=== PATIENT | female | born 1990 | race Caucasian/White ===

== ENCOUNTER 2017-01-09 11:14 | Emergency (ER) | payer MEDICAID ==
[~2017-01-09] VITALS: Ht 162.6 cm; Wt 53.5 kg
[~2017-01-09 11:14] MED LIST: CLON1TAB PO; ONDA4TAB10 PO
[2017-01-09] MEDS ORDERED: DIPHENHYDRAMINE 50 MG/ML, 1ML ONE (11:56)
[2017-01-09] MEDS ORDERED: METOCLOPRAMIDE 5 MG/ML, 2ML ONE (11:56)
[2017-01-09] MEDS ORDERED: SODIUM CHLORIDE FLUSH 10ML SYR IVF ONE (12:00)
[2017-01-09] MEDS ORDERED: SODIUM CHLORIDE 0.9% 1,000ML IVBOLUS ONE (12:00)
[2017-01-09] MEDS ORDERED: DIPHENHYDRAMINE 50 MG/ML, 1ML IVPush ONE (12:00)
[2017-01-09] MEDS ORDERED: METOCLOPRAMIDE 5 MG/ML, 2ML IVPush ONE (12:00)
[2017-01-09 12:03] LABS: HEMATOCRIT 43.3 % (34.6-47.8); HEMOGLOBIN 14.5 g/dL (11.7-16.4); WHITE BLOOD COUNT 12.3 x10^3/uL (3.4-10)
[2017-01-09 12:14] LABS: BLOOD UREA NITROGEN 12 mg/dL (7-18)
[2017-01-09 13:12] VITALS: BP_DIAS 60
[2017-01-09] MEDS ORDERED: BUPIVACAINE 0.25% ONE (13:18)
[2017-01-09 14:24] VITALS: BP_SYST 55
== END 2017-01-09 14:28 | disposition home or self-care (01) ==
LOC: ED 11:30
DX: G43.019 Migraine without aura, intractable, without status migrainosus (principal)
CPT/HCPCS: 36415; 70450; 80048; 82040; 85025; 96361; 96374; 96375; 99285; J1200; J2765; J7030

== ENCOUNTER 2017-04-29 21:25 | Emergency (ER) | payer MEDICAID ==
[~2017-04-29] VITALS: Ht 162.6 cm; Wt 54.2 kg
[2017-04-29 21:31] VITALS: BP 116/79
[2017-04-29] MEDS ORDERED: KETOROLAC 30 MG/1 ML ONE (22:10)
[2017-04-29] MEDS ORDERED: KETOROLAC 30 MG/1 ML IM ONE (22:30)
[2017-04-29] MEDS ORDERED: ALBUTEROL/IPRATROPIUM 2.5MG/0.5MG, 3 ML NPPB ONE (22:30)
[2017-04-29] MEDS ORDERED: ALBUTEROL/IPRATROPIUM 2.5MG/0.5MG, 3 ML ONE (22:39)
[2017-04-29 22:45] LABS: RAPID INFLUENZA A POSITIVE (Negative); RAPID INFLUENZA B Negative (Negative)
== END 2017-04-29 23:16 | disposition home or self-care (01) ==
LOC: ED 23:09
DX: J11.1 Influenza due to unidentified influenza virus with other respiratory manifestations (principal); G43.909 Migraine, unspecified, not intractable, without status migrainosus; J45.909 Unspecified asthma, uncomplicated
CPT/HCPCS: 71020; 87400; 93005; 94640; 96372; 99285; J1885; J7512; J7620

== ENCOUNTER 2017-08-07 09:29 | Emergency (ER) | payer MEDICAID ==
[~2017-08-07] VITALS: Ht 162.6 cm; Wt 53.8 kg
[2017-08-07 11:36] VITALS: BP 100/61
== END 2017-08-07 11:38 | disposition home or self-care (01) ==
LOC: ED 10:29
DX: J01.90 Acute sinusitis, unspecified (principal); R53.83 Other fatigue; G43.909 Migraine, unspecified, not intractable, without status migrainosus; Z88.0 Allergy status to penicillin
CPT/HCPCS: 93005; 99283

== ENCOUNTER 2017-08-30 12:11 | Emergency (ER) | payer MEDICAID ==
[~2017-08-30] VITALS: Ht 162.6 cm; Wt 55.0 kg
[2017-08-30] MEDS ORDERED: MULT-732 PO (12:52)
[2017-08-30 13:08] LABS: CULTURE INDICATED? NO; MICROSCOPIC NOT IND
[2017-08-30 13:19] LABS: BASOPHILS # (AUTO) 0.03 x10^3/uL (0-0.1); BASOPHILS % (AUTO) 1 % (0-1); EOSINOPHILS # (AUTO) 0.31 x10^3/uL (0-0.4); EOSINOPHILS % (AUTO) 5 % (1-7); LYMPHOCYTES # (AUTO) 2.58 x10^3/uL (1-3.4); LYMPHOCYTES % (AUTO) 39 % (22-44); MD NO; MEAN CORPUSCULAR HGB CONC 34.2 g/dL (32.4-35.8); MEAN CORPUSCULAR VOLUME 93.4 fL (80-100); MEAN PLATELET VOLUME 8.8 fL (7.4-10.4); MONOCYTES # (AUTO) 0.55 x10^3/uL (0.2-0.8); MONOCYTES % (AUTO) 8 % (2-9); NEUTROPHILS # (AUTO) 3.22 x10^3/uL (1.8-6.8); NEUTROPHILS % (AUTO) 48 % (42-75); PLATELET COUNT 239 x10^3/uL (130-400); RED BLOOD COUNT 4.56 x10^6/uL (3.82-5.3); RED CELL DISTRIBUTION WIDTH 12.9 % (9.6-15.2)
[2017-08-30 13:29] LABS: ALBUMIN 3.7 g/dL (3.4-5.0); ANION GAP 5 mmol/L (5-15); CALCIUM 8.3 mg/dL (8.5-10.1); CHLORIDE 112 mmol/L (98-107)
[2017-08-30 13:35] LABS: ALANINE AMINOTRANSFERASE 16 U/L (12-78); ALKALINE PHOSPHATASE 55 U/L (45-117); BILIRUBIN,TOTAL 0.4 mg/dL (0.2-1.0); CREATININE 0.85 mg/dL (0.55-1.02); FREE T4 (FREE THYROXINE) 1.06 ng/dL (0.76-1.46); TOTAL PROTEIN 6.6 g/dL (6.4-8.2)
[2017-08-30 13:41] LABS: THYROID STIMULATING HORMONE 0.716 mIU/L (0.358-3.740)
[2017-08-30 14:58] VITALS: BP 95/66
== END 2017-08-30 16:09 | disposition home or self-care (01) ==
LOC: ED 13:36
DX: R50.9 Fever, unspecified (principal); R53.1 Weakness; G43.909 Migraine, unspecified, not intractable, without status migrainosus
CPT/HCPCS: 36415; 71046; 76700; 80053; 81003; 84439; 84443; 84703; 85025; 93005; 99285

== ENCOUNTER 2017-10-03 12:19 | Emergency (ER) | payer MEDICAID ==
[~2017-10-03] VITALS: Ht 162.6 cm; Wt 52.7 kg
[~2017-10-03 12:19] MED LIST changes: +MULT-732 PO
[2017-10-03 13:11] VITALS: BP 118/78
[2017-10-03] MEDS ORDERED: FAMOTIDINE 20 MG/2 ML ONE (13:24)
[2017-10-03] MEDS ORDERED: ONDANSETRON ODT 4 MG ONE (13:24)
[2017-10-03] MEDS ORDERED: SODIUM CHLORIDE FLUSH 10ML SYR IVF ONE (13:30)
[2017-10-03] MEDS ORDERED: FAMOTIDINE 20 MG/2 ML IVP ONE (13:30)
[2017-10-03] MEDS ORDERED: SODIUM CHLORIDE 0.9% 1,000ML IVBOLUS ONE (13:30)
[2017-10-03] MEDS ORDERED: ONDANSETRON ODT 4 MG PO ONE (13:30)
[2017-10-03 13:52] LABS: BASOPHILS # (AUTO) 0.02 x10^3/uL (0-0.1); BASOPHILS % (AUTO) 0 % (0-1); EOSINOPHILS # (AUTO) 0.01 x10^3/uL (0-0.4); EOSINOPHILS % (AUTO) 0 % (1-7); LYMPHOCYTES # (AUTO) 0.79 x10^3/uL (1-3.4); LYMPHOCYTES % (AUTO) 8 % (22-44); MD NO; MEAN CORPUSCULAR HEMOGLOBIN 31.9 pg (27.0-34.8); MEAN CORPUSCULAR HGB CONC 34.1 g/dL (32.4-35.8); MEAN CORPUSCULAR VOLUME 93.7 fL (80-100); MEAN PLATELET VOLUME 9.5 fL (7.4-10.4); MONOCYTES # (AUTO) 0.62 x10^3/uL (0.2-0.8); MONOCYTES % (AUTO) 6 % (2-9); NEUTROPHILS # (AUTO) 8.43 x10^3/uL (1.8-6.8); NEUTROPHILS % (AUTO) 85 % (42-75); PLATELET COUNT 243 x10^3/uL (130-400); RED BLOOD COUNT 5.18 x10^6/uL (3.82-5.3); RED CELL DISTRIBUTION WIDTH 12.5 % (9.6-15.2)
[2017-10-03 14:01] LABS: ALANINE AMINOTRANSFERASE 27 U/L (12-78); ANION GAP 9 mmol/L (5-15); CALCIUM 8.9 mg/dL (8.5-10.1); CHLORIDE 104 mmol/L (98-107); CREATININE 1.09 mg/dL (0.55-1.02)
[2017-10-03 14:05] LABS: ALKALINE PHOSPHATASE 58 U/L (45-117); BILIRUBIN,TOTAL 1.1 mg/dL (0.2-1.0); TOTAL PROTEIN 7.8 g/dL (6.4-8.2)
[2017-10-03 14:40] LABS: MICROSCOPIC INDICATED
[2017-10-03 14:50] LABS: CULTURE INDICATED? NO
[2017-10-03] MEDS ORDERED: KETOROLAC 30 MG/1 ML IVPush ONE (15:30)
[2017-10-03] MEDS ORDERED: KETOROLAC 30 MG/1 ML ONE (15:31)
== END 2017-10-03 16:01 | disposition home or self-care (01) ==
LOC: ED 15:07
DX: K52.9 Noninfective gastroenteritis and colitis, unspecified (principal); G43.909 Migraine, unspecified, not intractable, without status migrainosus
CPT/HCPCS: 36415; 80053; 81001; 83690; 84703; 85025; 96361; 96374; 96375; 99285; J1885; J7030; Q0162; S0028

== ENCOUNTER 2017-11-27 09:53 | Emergency (ER) | payer OTHER ==
[~2017-11-27] VITALS: Ht 162.6 cm; Wt 55.0 kg
[2017-11-27] MEDS ORDERED: ONDANSETRON ODT 4 MG ONE (10:20)
[2017-11-27] MEDS ORDERED: PHENAZOPYRIDINE 200 MG TABLET ONE (10:20)
[2017-11-27] MEDS ORDERED: PHENAZOPYRIDINE 200 MG TABLET PO ONE (10:30)
[2017-11-27] MEDS ORDERED: ONDANSETRON ODT 4 MG PO ONE (10:30)
[2017-11-27 10:32] LABS: BASOPHILS # (AUTO) 0.03 x10^3/uL (0-0.1); BASOPHILS % (AUTO) 0 % (0-1); EOSINOPHILS # (AUTO) 0.13 x10^3/uL (0-0.4); EOSINOPHILS % (AUTO) 1 % (1-7); LYMPHOCYTES # (AUTO) 2.65 x10^3/uL (1-3.4); LYMPHOCYTES % (AUTO) 26 % (22-44); MD NO; MEAN CORPUSCULAR HEMOGLOBIN 31.8 pg (27.0-34.8); MEAN CORPUSCULAR HGB CONC 33.5 g/dL (32.4-35.8); MEAN CORPUSCULAR VOLUME 94.8 fL (80-100); MEAN PLATELET VOLUME 8.2 fL (7.4-10.4); MONOCYTES # (AUTO) 0.63 x10^3/uL (0.2-0.8); MONOCYTES % (AUTO) 6 % (2-9); NEUTROPHILS # (AUTO) 6.97 x10^3/uL (1.8-6.8); NEUTROPHILS % (AUTO) 67 % (42-75); PLATELET COUNT 241 x10^3/uL (130-400); RED BLOOD COUNT 4.52 x10^6/uL (3.82-5.3); RED CELL DISTRIBUTION WIDTH 13.2 % (9.6-15.2)
[2017-11-27 10:34] LABS: MICROSCOPIC AUTO
[2017-11-27 10:36] LABS: CULTURE INDICATED? YES
[2017-11-27 10:44] LABS: ALANINE AMINOTRANSFERASE 28 U/L (12-78); ALBUMIN 3.9 g/dL (3.4-5.0); ANION GAP 5 mmol/L (5-15); CALCIUM 9.1 mg/dL (8.5-10.1); CHLORIDE 109 mmol/L (98-107); CREATININE 0.74 mg/dL (0.55-1.02)
[2017-11-27 10:48] LABS: ALKALINE PHOSPHATASE 69 U/L (45-117); BILIRUBIN,TOTAL 0.2 mg/dL (0.2-1.0); TOTAL PROTEIN 6.9 g/dL (6.4-8.2)
[2017-11-27] MEDS ORDERED: KETOROLAC 30 MG/1 ML ONE (11:45)
[2017-11-27] MEDS ORDERED: KETOROLAC 30 MG/1 ML IM ONE (12:00)
[2017-11-27 12:16] VITALS: BP 90/60
== END 2017-11-27 12:31 | disposition home or self-care (01) ==
LOC: ED 12:12
DX: R10.9 Unspecified abdominal pain (principal); M54.9 Dorsalgia, unspecified; R11.2 Nausea with vomiting, unspecified; R30.0 Dysuria; R35.0 Frequency of micturition; F41.9 Anxiety disorder, unspecified; Z88.1 Allergy status to other antibiotic agents; Z88.2 Allergy status to sulfonamides; Z88.0 Allergy status to penicillin
CPT/HCPCS: 36415; 76770; 80053; 81001; 84703; 85025; 87086; 96372; 99285; J1885; Q0162

== ENCOUNTER 2018-04-22 22:43 | Emergency (ER) | payer MEDICAID ==
[~2018-04-22] VITALS: Ht 162.6 cm; Wt 56.1 kg
[2018-04-22 22:47] VITALS: BP 126/80
[2018-04-22] MEDS ORDERED: IBUPROFEN 600 MG TABLET ONE (23:15)
[2018-04-22] MEDS ORDERED: hydrOXyzine 50MG TABLET ONE (23:15)
[2018-04-22] MEDS ORDERED: METOCLOPRAMIDE 10MG TABLET ONE (23:15)
[2018-04-22] MEDS ORDERED: DEXAMETHASONE 4 MG TABLET ONE (23:15)
[2018-04-22] MEDS ORDERED: MECLIZINE CHEWABLE 25 MG TAB ONE (23:15)
[2018-04-22] MEDS ORDERED: DEXAMETHASONE 4 MG TABLET PO ONE (23:30)
[2018-04-22] MEDS ORDERED: IBUPROFEN 200 MG TABLET PO ONE (23:30)
[2018-04-22] MEDS ORDERED: METOCLOPRAMIDE 10MG TABLET PO ONE (23:30)
[2018-04-22] MEDS ORDERED: MECLIZINE CHEWABLE 25 MG TAB PO ONE (23:30)
== END 2018-04-23 00:27 | disposition home or self-care (01) ==
LOC: ED 23:28
DX: G44.201 Tension-type headache, unspecified, intractable (principal); H65.02 Acute serous otitis media, left ear; J01.00 Acute maxillary sinusitis, unspecified; F41.1 Generalized anxiety disorder
CPT/HCPCS: 99284; Q0177

== ENCOUNTER 2018-12-12 20:10 | Emergency (ER) | payer MEDICAID ==
[~2018-12-12] VITALS: Ht 162.6 cm; Wt 55.7 kg
[2018-12-12 20:15] VITALS: BP 109/71
== END 2018-12-12 21:31 | disposition home or self-care (01) ==
LOC: ED 21:27
DX: S83.91XA Sprain of unspecified site of right knee, initial encounter (principal); X50.1XXA Overexertion from prolonged static or awkward postures, initial encounter; Y93.89 Activity, other specified; Y92.410 Unspecified street and highway as the place of occurrence of the external cause; Y99.8 Other external cause status
CPT/HCPCS: 29505; 99283

== ENCOUNTER 2019-03-19 18:57 | Emergency (ER) | payer MEDICAID ==
[~2019-03-19] VITALS: Ht 162.6 cm; Wt 53.5 kg
[2019-03-19 19:01] VITALS: BP 125/83
== END 2019-03-19 19:33 | disposition home or self-care (01) ==
LOC: ED 19:15
DX: H65.02 Acute serous otitis media, left ear (principal); G43.909 Migraine, unspecified, not intractable, without status migrainosus
CPT/HCPCS: 99283

== ENCOUNTER 2019-09-07 13:14 | Emergency (ER) | payer MEDICAID ==
[~2019-09-07] VITALS: Ht 162.6 cm; Wt 52.0 kg
[2019-09-07] MEDS ORDERED: SODIUM CHLORIDE FLUSH 10ML SYR IVF ONE (14:00)
[2019-09-07 14:20] LABS: BASOPHILS # (AUTO) 0.04 x10^3/uL (0-0.1); BASOPHILS % (AUTO) 0 % (0-1); EOSINOPHILS # (AUTO) 0.09 x10^3/uL (0-0.4); EOSINOPHILS % (AUTO) 1 % (1-7); LYMPHOCYTES # (AUTO) 2.44 x10^3/uL (1-3.4); LYMPHOCYTES % (AUTO) 22 % (22-44); MD NO; MEAN CORPUSCULAR HEMOGLOBIN 32.5 pg (27.0-34.8); MEAN CORPUSCULAR HGB CONC 33.9 g/dL (32.4-35.8); MEAN CORPUSCULAR VOLUME 96.1 fL (80-100); MEAN PLATELET VOLUME 8.5 fL (7.4-10.4); MONOCYTES # (AUTO) 0.81 x10^3/uL (0.2-0.8); MONOCYTES % (AUTO) 7 % (2-9); NEUTROPHILS # (AUTO) 7.94 x10^3/uL (1.8-6.8); NEUTROPHILS % (AUTO) 70 % (42-75); PLATELET COUNT 269 x10^3/uL (130-400); RED BLOOD COUNT 4.84 x10^6/uL (3.82-5.3)
[2019-09-07 14:26] LABS: MICROSCOPIC NOT IND
[2019-09-07 14:30] LABS: CULTURE INDICATED? NO
[2019-09-07 14:35] LABS: ALANINE AMINOTRANSFERASE 20 U/L (12-78); ALBUMIN 4.6 g/dL (3.4-5.0); ANION GAP 6 mmol/L (5-15); CALCIUM 9.6 mg/dL (8.5-10.1); CHLORIDE 109 mmol/L (98-107); CREATININE 0.87 mg/dL (0.55-1.02)
[2019-09-07 14:39] LABS: ALKALINE PHOSPHATASE 53 U/L (45-117); BILIRUBIN,TOTAL 0.9 mg/dL (0.2-1.0); TOTAL PROTEIN 8.1 g/dL (6.4-8.2)
[2019-09-07] MEDS ORDERED: ONDANSETRON 2MG/ML, 2ML ONE (14:44)
[2019-09-07] MEDS ORDERED: MORPHINE SULFATE 4 MG/ML, 1ML ONE ×2 (14:44→15:54)
[2019-09-07] MEDS ORDERED: morphine SULFATE 10 MG/ML, 1ML IVPush ONE (15:00)
[2019-09-07] MEDS ORDERED: ONDANSETRON 2MG/ML, 2ML IVPush ONE (15:00)
[2019-09-07] MEDS ORDERED: OMNIPAQUE 350 MG/ML, 100ML BOTTLE ONE (15:11)
[2019-09-07 15:25] VITALS: BP 97/96
[2019-09-07] MEDS ORDERED: MORPHINE SULFATE 4 MG/ML, 1ML IVPush ONE (16:00)
== END 2019-09-07 16:44 | disposition home or self-care (01) ==
LOC: ED 14:12
DX: R19.7 Diarrhea, unspecified (principal); R10.84 Generalized abdominal pain; G89.29 Other chronic pain; F43.0 Acute stress reaction; F17.200 Nicotine dependence, unspecified, uncomplicated; Z88.0 Allergy status to penicillin; Z88.2 Allergy status to sulfonamides; Z88.1 Allergy status to other antibiotic agents
CPT/HCPCS: 36415; 74177; 76700; 80053; 81003; 83690; 84703; 85025; 96374; 96375; 96376; 99285; J2270; J2405; Q9967

== ENCOUNTER 2020-06-11 10:02 | Emergency (ER) | payer MEDICAID ==
[~2020-06-11] VITALS: Ht 162.6 cm; Wt 56.8 kg
[2020-06-11] MEDS ORDERED: IBUPROFEN 200 MG TABLET PO ONE (10:30)
--- NOTE | 2020-06-11 10:43 | NUR ---
pt states she has been sob at home and has had short periods of feeling " my heart has been fluttering or racing and i feel sob". placed on monitor SR 80s. vss no distress
[2020-06-11] MEDS ORDERED: IBUPROFEN 200 MG TABLET ONE (10:52)
--- NOTE | 2020-06-11 10:56 | NUR ---
pt sitting in bed, admin meds
[2020-06-11 10:59] LABS: BASOPHILS % (AUTO) 1 % (0-1); EOSINOPHILS % (AUTO) 1 % (1-7); LYMPHOCYTES % (AUTO) 36 % (22-44); MEAN CORPUSCULAR HEMOGLOBIN 32.6 pg (27.0-34.8); MEAN CORPUSCULAR HGB CONC 34.6 g/dL (32.4-35.8); MEAN PLATELET VOLUME 8.6 fL (7.4-10.4); MONOCYTES % (AUTO) 8 % (2-9); NEUTROPHILS % (AUTO) 54 % (42-75); PLATELET COUNT 221 x10^3/uL (130-400); RED BLOOD COUNT 4.48 x10^6/uL (3.82-5.3)
[2020-06-11 11:04] LABS: ALANINE AMINOTRANSFERASE 21 U/L (12-78); ALBUMIN 4.2 g/dL (3.4-5.0); ANION GAP 6 mmol/L (5-15); CALCIUM 8.9 mg/dL (8.5-10.1); CHLORIDE 112 mmol/L (98-107); CREATININE 0.87 mg/dL (0.55-1.02)
[2020-06-11 11:07] LABS: ALKALINE PHOSPHATASE 47 U/L (45-117); BILIRUBIN,TOTAL 0.8 mg/dL (0.2-1.0)
[2020-06-11 11:34] LABS: MD SCAN
[2020-06-11 12:14] VITALS: BP 94/60
--- NOTE | 2020-06-11 12:16 | NUR ---
pt dc home, vss, no distress, walked out self with steady gait. rx in hand. if s&s worsen return to er
== END 2020-06-11 12:18 | disposition home or self-care (01) ==
LOC: ED 11:01
DX: J40 Bronchitis, not specified as acute or chronic (principal); Z20.822 Contact with and (suspected) exposure to COVID-19; B34.9 Viral infection, unspecified; M79.10 Myalgia, unspecified site; R50.9 Fever, unspecified; R05 Cough; R51.9 Headache, unspecified; R11.0 Nausea; R19.7 Diarrhea, unspecified; F17.200 Nicotine dependence, unspecified, uncomplicated
CPT/HCPCS: 36415; 71045; 80053; 85025; 87635; 99284